=== PATIENT | male | born 2000 | race Caucasian/White ===

== ENCOUNTER 2023-10-25 19:56 | Inpatient (IN) | payer OTHER ==
[2023-10-25 20:31] VITALS: BMI 25.1
[2023-10-25] MEDS ORDERED: chlordiazePOXIDE HCL 25 MG CAPSULE ONE (20:49)
[2023-10-25] MEDS ORDERED: METOPROLOL TARTRATE 25 MG TABLET (FP) ONE (20:49)
[2023-10-25] MEDS: chlordiazePOXIDE HCL 25 MG CAPSULE PO ONE (20:53)
[2023-10-25] MEDS: METOPROLOL TARTRATE 25 MG TABLET (FP) PO ONE (20:53)
[2023-10-25] MEDS ORDERED: MAGNESIUM HYDROX 2400MG/30ML ORAL SUSPENSION 30 ML CUP PO PRN (20:54)
[2023-10-25] MEDS ORDERED: guaiFENesin 600 MG TABLET.ER (FP) PO PRN (20:54)
[2023-10-25] MEDS ORDERED: MAG HYDROX/AL HYDROX/SIMETH 30 ML UNIT-DOSE CUP PO PRN (20:54)
[2023-10-25] MEDS ORDERED: BENZONATATE 200 MG CAPSULE PO PRN (20:54)
[2023-10-25] MEDS ORDERED: IBUPROFEN 400 MG TABLET (FP) PO PRN (20:54)
[2023-10-25] MEDS ORDERED: ACETAMINOPHEN 325 MG TABLET (FP) PO PRN (20:54)
[2023-10-25] MEDS ORDERED: BISMUTH SUBSALICYLATE 524 MG/30 ML PO PRN (20:54)
[2023-10-25] MEDS ORDERED: DICYCLOMINE HCL 10 MG CAPSULE PO PRN (20:54)
[2023-10-25] MEDS ORDERED: IBUPROFEN 600 MG TABLET (FP) PO PRN (20:54)
[2023-10-25] MEDS ORDERED: NALOXONE HCL 0.4 MG/ML VIAL IM PRN (20:54)
[2023-10-25] MEDS ORDERED: BENZOCAINE/MENTHOL (CHLORASEPTIC ) LOZENGE MM PRN (20:54)
[2023-10-25] MEDS ORDERED: POLYETHYLENE GLYCOL (HEALTHYLAX) 3350 17 GM PACKET PO PRN (20:54)
[2023-10-25] MEDS ORDERED: chlordiazePOXIDE HCL 25 MG CAPSULE PO PRN (20:54)
[2023-10-25] MEDS ORDERED: LOPERAMIDE HCL 2 MG CAPSULE PO PRN (20:54)
[2023-10-25] MEDS ORDERED: NALOXONE (NARCAN) HCL 4 MG/0.1 ML SPRAY NS PRN (20:54)
[2023-10-25] MEDS: MELATONIN 5 MG TABLETS PO SCH (23:00)
[2023-10-25] MEDS: THIAMINE 100 MG TABLET PO SCH (23:00)
[2023-10-25] MEDS: chlordiazePOXIDE HCL 25 MG CAPSULE PO SCH (23:35)
[2023-10-26] MEDS: PRENATAL VITAMINS W/ FOLIC ACID TABLET (FP) PO SCH (09:51)
[2023-10-26] MEDS: LORazepam 2 MG TABLET PO SCH ×2 (11:00→17:31)
[2023-10-26 12:24] LABS: HEMATOCRIT 42.6 % (35.4-49); MCH 31.5 pg (25.7-33.7); MCHC 35.1 g/dl (32.0-35.9); MEAN CELL VOLUME 89.7 fl (80-96); MEAN PLT VOLUME 9.4 fl (7.5-11.1); RBC 4.75 M/mm3 (4.00-5.60); RDW 13.2 % (11.9-15.9)
[2023-10-26 12:28] LABS: PLATELET COUNT 32 10^3/uL (134-434)
[2023-10-26 12:50] LABS: CHLORIDE 95 mmol/L (98-107); POTASSIUM 3.5 mmol/L (3.5-5.1); SODIUM 137 mmol/L (136-145)
[2023-10-26 12:56] LABS: ANION GAP 10 mmol/L (4-13); BLOOD UREA NITROGEN 11.6 mg/dL (7-18); CALCIUM 9.6 mg/dL (8.5-10.1); CO2 32 mmol/L (21-32); GLUCOSE,RANDOM 97 mg/dL (74-106)
[2023-10-26 12:59] LABS: SGOT/AST 282 U/L (15-37); SGPT/ALT 327 U/L (13-61)
[2023-10-26 13:00] LABS: BILIRUBIN,TOTAL 3.2 mg/dL (0.2-1)
[2023-10-26 13:01] LABS: ALBUMIN 4.3 g/dl (3.4-5.0); ALK PHOS 81 U/L (45-117)
[2023-10-26 13:03] LABS: CREATININE 0.8 mg/dL (0.55-1.3)
[2023-10-26 13:04] LABS: TOT PROT 7.4 g/dl (6.4-8.2)
[2023-10-26] MEDS: GABAPENTIN 300 MG CAPSULE PO SCH (13:35)
[2023-10-26] MEDS: LORazepam 1 MG TABLET PO PRN (14:04)
[2023-10-26] MEDS: ONDANSETRON *ODT* 4 MG TABLET SL PRN (18:56)
[2023-10-26] MEDS: hydrOXYzine PAMOATE 25 MG CAPSULE (FP) PO PRN (18:56)
[2023-10-26 21:10] VITALS: RESP 16
[2023-10-26] MEDS: risperiDONE 2 MG TABLET PO SCH (22:12)
[2023-10-27] MEDS ORDERED: chlordiazePOXIDE HCL 25 MG CAPSULE PO SCH (05:00)
[2023-10-27 09:28] VITALS: PULSE 120
[2023-10-27 13:40] VITALS: BP 136/90; TEMP 97.8
[2023-10-28] MEDS ORDERED: chlordiazePOXIDE HCL 10 MG CAPSULE PO PRN
[2023-10-28] MEDS ORDERED: LORazepam 1 MG TABLET PO SCH (05:00)
[2023-10-28] MEDS ORDERED: chlordiazePOXIDE HCL 10 MG CAPSULE PO SCH (05:00)
[2023-10-29] MEDS ORDERED: LORazepam 0.5 MG TABLET PO PRN
[2023-10-29] MEDS ORDERED: chlordiazePOXIDE HCL 10 MG CAPSULE PO SCH (05:00)
[2023-10-29] MEDS ORDERED: LORazepam 0.5 MG TABLET PO SCH (05:00)
[2023-10-30] MEDS ORDERED: chlordiazePOXIDE HCL 10 MG CAPSULE PO ONE (05:00)
[2023-10-30] MEDS ORDERED: LORazepam 0.5 MG TABLET PO ONE (05:00)
== END 2023-10-27 16:30 | disposition left against medical advice (07) | DRG 770 ==
LOC: YASAS 19:56 → Y6N 21:03
PROVIDERS: ADMIT Allergy & Immunology; ATTEND Surgery
PROC: HZ2ZZZZ Detoxification Services for Substance Abuse Treatment (ICD-10-PCS; principal; 2023-10-25)
DX: F10.230 Alcohol dependence with withdrawal, uncomplicated (principal); F12.20 Cannabis dependence, uncomplicated; F25.1 Schizoaffective disorder, depressive type; F10.280 Alcohol dependence with alcohol-induced anxiety disorder; F10.282 Alcohol dependence with alcohol-induced sleep disorder; F31.9 Bipolar disorder, unspecified; D69.6 Thrombocytopenia, unspecified; E80.6 Other disorders of bilirubin metabolism; R74.01 Elevation of levels of liver transaminase levels
CPT/HCPCS: 36415; 80053; 80305; 80307; 85027; 86780; 93005; 93010; Q0162